=== PATIENT | male | born 1960 | race Caucasian/White ===

== ENCOUNTER 2018-12-27 05:15 | Day surgery (SDC) | payer BC ==
[~2018-12-27] VITALS: Ht 182.9 cm; Wt 100.9 kg
[2018-12-27] MEDS ORDERED: LACTATED RINGERS 1,000 ML IV SCH (06:00)
[2018-12-27] MEDS ORDERED: LIDOCAINE 1%-EPI 1:100K, 20ML ONE (06:17)
[2018-12-27] MEDS ORDERED: BUPIVACAINE/PF-EPI 0.5% 1:200K ONE (06:17)
[2018-12-27 06:27] VITALS: BP 129/86
[2018-12-27 06:42] LABS: ALANINE AMINOTRANSFERASE 35 U/L (12-78); ANION GAP 8 mmol/L (5-15); CALCIUM 9.3 mg/dL (8.5-10.1); CHLORIDE 106 mmol/L (98-107); CREATININE 0.77 mg/dL (0.7-1.3)
[2018-12-27 06:45] LABS: ALKALINE PHOSPHATASE 70 U/L (45-117); BILIRUBIN,TOTAL 1.3 mg/dL (0.2-1.0); TOTAL PROTEIN 7.8 g/dL (6.4-8.2)
[2018-12-27] MEDS ORDERED: HYDR-3245 PO (06:51)
[2018-12-27] MEDS ORDERED: METF500T17 PO (06:51)
[2018-12-27] MEDS ORDERED: SITA100T PO (06:51)
[2018-12-27] MEDS ORDERED: DAPA5TAB PO (06:51)
[2018-12-27] MEDS ORDERED: ATOR40TA78 PO (06:51)
[2018-12-27] MEDS ORDERED: LISI-167 PO (06:51)
[2018-12-27] MEDS ORDERED: OMEP-110 PO (06:51)
[2018-12-27] MEDS ORDERED: ASPI-496 PO (06:52)
[2018-12-27] MEDS ORDERED: FENTANYL PF 100 MCG/2ML ONE (06:56)
[2018-12-27] MEDS ORDERED: MIDAZOLAM 1 MG/ML, 2ML ONE ×2 (06:56)
[2018-12-27] MEDS ORDERED: PROPOFOL 10 MG/ML, 20ML ONE (07:00)
[2018-12-27] MEDS ORDERED: CEFAZOLIN 1,000 MG ONE (07:00)
[2018-12-27] MEDS ORDERED: ALBUTEROL SULFATE 2.5 MG/3 ML NPPB PRN (07:30)
[2018-12-27] MEDS ORDERED: PROMETHAZINE 25 MG/ML, 1ML IV PRN (07:30)
[2018-12-27] MEDS ORDERED: OXYcodone 5 MG/5 ML ORAL.SOL UDC PO PRN (07:30)
[2018-12-27] MEDS ORDERED: HYDROmorphone 2 MG/ML, 1ML IVPush PRN (07:30)
[2018-12-27] MEDS ORDERED: FENTANYL PF 100 MCG/2ML IV PRN (07:30)
[2018-12-27] MEDS ORDERED: hydrALAzine 20 MG/ML, 1ML IV PRN (07:30)
[2018-12-27] MEDS ORDERED: KETOROLAC 30 MG/1 ML IV PRN (07:30)
[2018-12-27] MEDS ORDERED: ACETAMINOPHEN 325 MG TABLET PO PRN (07:30)
[2018-12-27] MEDS ORDERED: DIAZEPAM 5 MG/ML, 2ML IVPush PRN (07:30)
[2018-12-27] MEDS ORDERED: LABETALOL 5MG/ML, 20ML IV PRN (07:30)
[2018-12-27] MEDS ORDERED: MEPERIDINE/PF 25MG/0.5ML IVPush PRN (07:30)
[2018-12-27] MEDS ORDERED: KETOROLAC 30 MG/1 ML ONE (07:51)
[2018-12-27] MEDS ORDERED: BILLBERRY PO (10:26)
[2018-12-27] MEDS ORDERED: MULT-658 PO (10:26)
[2018-12-27] MEDS ORDERED: B COMPLEX PO (10:26)
[2018-12-27] MEDS ORDERED: POTASSIUM PO (10:26)
[2018-12-27] MEDS ORDERED: ALLEGRA PO (10:26)
[2018-12-27] MEDS ORDERED: CALCIUM PO (10:26)
[2018-12-27] MEDS ORDERED: OSTEO BI FLEX PO (10:26)
[2018-12-27] MEDS ORDERED: VITAMIN C PO (10:29)
[2018-12-27] MEDS ORDERED: ALEVE PO (10:29)
[2018-12-27] MEDS ORDERED: VITAMIN D3 PO (10:29)
[2019-01-10] MEDS ORDERED: HYDR-3652 PO (19:03)
== END 2018-12-27 08:46 | disposition home or self-care (01) ==
LOC: OUT 05:15
PROVIDERS: ATTEND Orthopaedic Surgery
DX: G56.03 Carpal tunnel syndrome, bilateral upper limbs (principal); M19.031 Primary osteoarthritis, right wrist; M19.032 Primary osteoarthritis, left wrist; E11.9 Type 2 diabetes mellitus without complications; I10 Essential (primary) hypertension; E66.9 Obesity, unspecified; E78.5 Hyperlipidemia, unspecified; Z72.89 Other problems related to lifestyle; Z79.82 Long term (current) use of aspirin; Z79.84 Long term (current) use of oral hypoglycemic drugs; Z79.899 Other long term (current) drug therapy; Z87.891 Personal history of nicotine dependence; Z88.8 Allergy status to other drugs, medicaments and biological substances; Z82.61 Family history of arthritis
CPT/HCPCS: 36415; 64721; 80053; 82962; 93005; J0690; J1885; J2250; J2704; J3010; J3490; J7120

== ENCOUNTER 2019-01-10 14:38 | Observation (INO) | payer BC ==
[~2019-01-10] VITALS: Ht 182.9 cm; Wt 97.8 kg
[2019-01-10 15:17] VITALS: BP 120/75
== END 2019-01-10 20:00 | disposition home or self-care (01) ==
LOC: OR 14:38 → 4NOR 18:45 → OR 19:45
PROVIDERS: ADMIT Orthopaedic Surgery; ATTEND Orthopaedic Surgery
DX: G56.02 Carpal tunnel syndrome, left upper limb (principal); M13.832 Other specified arthritis, left wrist; M13.831 Other specified arthritis, right wrist; E11.9 Type 2 diabetes mellitus without complications; G47.30 Sleep apnea, unspecified; K21.9 Gastro-esophageal reflux disease without esophagitis; I10 Essential (primary) hypertension; Z88.8 Allergy status to other drugs, medicaments and biological substances; Z87.891 Personal history of nicotine dependence; Z79.82 Long term (current) use of aspirin; Z79.899 Other long term (current) drug therapy; Z79.84 Long term (current) use of oral hypoglycemic drugs
CPT/HCPCS: 64721; 82962; G0378; J0690; J1100; J2250; J2405; J2704; J3010; J3490; J7120; J0171